=== PATIENT | male | born 1990 | race Caucasian/White ===

== ENCOUNTER 2022-06-12 10:03 | Outpatient (CLI) | payer OTHER, SELFPAY | END 2022-06-12 10:04 | disposition home or self-care (01) | PROVIDERS: Visit Provider Internal Medicine | DX: R10.9 Unspecified abdominal pain (principal) | CPT/HCPCS: 80053; 82150 ==

== ENCOUNTER 2022-06-13 07:07 | Outpatient (CLI) | payer OTHER, SELFPAY ==
--- NOTE | 2022-06-13 07:15 | CRLHL7_ITS ---
For Patients: As a result of the Century Cures Act, medical imaging exams and procedure reports are released immediately into your electronic medical record. You may view this report before your referring provider. If you have questions, please contact your health care provider. INDICATION: RUQ PAIN COMPARISON: none TECHNIQUE: Real time patrick scale imaging and color Doppler analysis was performed of the right upper quadrant. FINDINGS: The patient`s liver is of normal size and has uniform echogenicity. There is a normal appearance of the hepatic IVC and proximal abdominal aorta. There is no evidence of ascites. The gallbladder is of normal size and there is appears to be mild layering sludge. The gallbladder wall measures 2 mm in thickness. The common bile duct is of normal size and measures 3 mm in diameter at the level of the edd hepatis. The pancreas appears normal. There is no evidence of a stone or hydronephrosis within the right kidney. The right kidney measures 10.1 cm in length. IMPRESSION: Mild sludge in the gallbladder is suspected. The remainder is normal. Dictated by Nii Colbert MD @ 06/13/2022 9:15:26 AM (Electronically Signed)
== END 2022-06-13 07:08 | disposition home or self-care (01) ==
LOC: US 07:08
PROVIDERS: Visit Provider Internal Medicine
DX: R10.11 Right upper quadrant pain (principal)
CPT/HCPCS: 76705

== ENCOUNTER 2022-06-20 12:48 | Outpatient (CLI) | payer OTHER, SELFPAY ==
--- NOTE | 2022-06-20 13:00 | CRLHL7_ITS ---
For Patients: As a result of the Century Cures Act, medical imaging exams and procedure reports are released immediately into your electronic medical record. You may view this report before your referring provider. If you have questions, please contact your health care provider. INDICATION: 31 year-old male. Abdominal pain. Gastroesophageal reflux disease. TECHNIQUE: 5.02 mCi Tc-99m labeled Mebrofenin. 1.7 mcg CCK IV. FINDINGS: There is normal uptake and excretion of tracer by the liver. Activity is identified promptly within the extrahepatic biliary tree and the gallbladder within 10 minutes after injection. The gallbladder continues to fill up to one hour. After the administration of CCK the gallbladder ejection fraction is calculated at 36 percent which is just above the lower limit of normal of 35 percent. The patient did experience abdominal discomfort during CCK administration. IMPRESSION: 1. No evidence for cystic duct or common duct obstruction and no biliary leak. No evidence for acute cholecystitis. 2. Borderline low gallbladder ejection fraction of 36 percent. Dictated by Yannick Chambers MD @ 06/20/2022 4:44:23 PM (Electronically Signed)
== END 2022-06-20 12:49 | disposition home or self-care (01) ==
LOC: NM 12:54
PROVIDERS: Visit Provider Internal Medicine
DX: R10.9 Unspecified abdominal pain (principal)
CPT/HCPCS: 78227; A9537; J2805